=== PATIENT | female | born 1950 | race African-American/Black ===

== ENCOUNTER 2021-12-11 21:43 | Inpatient (IN) | payer OTHER ==
[~2021-12-11] VITALS: Ht 160 cm; Wt 62.6 kg
--- NOTE | 2021-12-11 22:57 | NUR ---
URINE SENT TO LAB
[2021-12-11] MEDS ORDERED: FAMOTIDINE/PF INJ 20 MG/2 ML VIAL IV ONE ×2 (23:00→23:09)
[2021-12-11] MEDS ORDERED: IV NS 0.9% 1,000 ML BAG IV ONE (23:00)
--- NOTE | 2021-12-11 23:07 | NUR ---
COVID SWAB SENT TO LAB
[2021-12-11 23:13] LABS: BASOPHILS % (AUTO) 0.2 % (0.0-2.0); EOSINOPHILS % (AUTO) 4.1 % (0.0-6.0); HEMATOCRIT 34 % (33-45); HEMOGLOBIN 11.4 g/dL (11.5-14.8); LYMPHOCYTES % (AUTO) 19.5 % (20.0-44.0); MEAN CORPUSCULAR HGB CONC 34 g/dl (31.0-36.0); MEAN CORPUSCULAR VOLUME 100 fL (82-100); MONOCYTES # (AUTO) 0.2 K/uL (0.1-1.30); MONOCYTES % (AUTO) 3.3 % (2.0-12.0); NEUTROPHILS # (AUTO) 3.9 K/uL (1.8-8.9); NEUTROPHILS % (AUTO) 72.9 % (43.0-81.0); PLATELET COUNT (AUTO) 266 K/uL (150-450); RED BLOOD CELL COUNT(AUTO) 3.39 MIL/uL (4.0-5.2); WHITE BLOOD COUNT (AUTO) 5.3 K/uL (4.3-11.0)
[2021-12-11 23:28] LABS: CALCIUM, SERUM 8.3 mg/dL (8.5-10.1); CARBON DIOXIDE 29 mmol/L (21-32); CHLORIDE 106 mmol/L (98-107); CREATININE 2.6 mg/dL (0.6-1.3); GLUCOSE 123 mg/dL (74-106); POTASSIUM 3.5 mmol/L (3.5-5.1); SODIUM SERUM 141 mmol/L (136-145); UREA NITROGEN, BLOOD 32 mg/dL (7-18)
[2021-12-11 23:33] LABS: BILIRUBIN,URINE MODERATE (NEGATIVE); COLOR,URINE YELLOW (YELLOW); LEUKOCYTE ESTERASE ,URINE NEGATIVE (NEGATIVE); NITRITE, URINE NEGATIVE (NEGATIVE); PH,URINE 5.5 (5.0-8.0); PROTEIN,URINE 30 mg/dl (NEGATIVE); UGLUCOSE NEGATIVE (NEGATIVE)
--- NOTE | 2021-12-11 23:34 | NUR ---
PATIENT TAKEN TO CT
[2021-12-11 23:35] LABS: ALANINE AMINOTRANSFERASE 14 U/L (12-78); ALKALINE PHOSPHATASE 79 U/L (46-116); ASPARTATE AMINOTRANSFERASE 11 U/L (15-37); BILIRUBIN,DIRECT 0.1 mg/dL (0.0-0.2); BILIRUBIN,TOTAL 0.3 mg/dL (0.2-1.0); LIPASE 51 U/L (73-393); TOTAL PROTEIN, SERUM 5.7 g/dL (6.4-8.2)
[2021-12-12 01:13] LABS: ALKALINE PHOSPHATASE 79 U/L (46-116); ASPARTATE AMINOTRANSFERASE 11 U/L (15-37); BILIRUBIN,DIRECT 0.1 mg/dL (0.0-0.2); BILIRUBIN,TOTAL 0.3 mg/dL (0.2-1.0)
[2021-12-12 01:14] LABS: ALANINE AMINOTRANSFERASE 14 U/L (12-78); LIPASE 51 U/L (73-393); TOTAL PROTEIN, SERUM 5.7 g/dL (6.4-8.2)
[2021-12-12 01:33] LABS: BACTERIA,URINE Many /HPF (None Seen); RBC,URINE 0-2 /HPF (0-2)
[2021-12-12 01:37] LABS: SQUAMOUS EPITHELIAL CELL,UR Moderate /HPF (None Seen)
[2021-12-12 01:40] LABS: HYALINE CASTS, URINE Few /LPF (None Seen)
[2021-12-12] MEDS ORDERED: ACETAMINOPHEN 325 MG TABLET ONE (02:44)
[2021-12-12] MEDS ORDERED: ACETAMINOPHEN 325 MG TABLET PO ONE (03:00)
[2021-12-12 03:20] LABS: BILIRUBIN,URINE MODERATE (NEGATIVE); COLOR,URINE YELLOW (YELLOW); LEUKOCYTE ESTERASE ,URINE NEGATIVE (NEGATIVE); NITRITE, URINE NEGATIVE (NEGATIVE); PH,URINE 5.5 (5.0-8.0); PROTEIN,URINE 30 mg/dl (NEGATIVE); UGLUCOSE NEGATIVE (NEGATIVE); UROBILINOGEN,URINE 0.2 EU/dL (0.2)
--- NOTE | 2021-12-12 03:25 | NUR ---
PAGED [facility] FOR ADMISSION, AWAITING A CALL BACK.
[2021-12-12] MEDS ORDERED: HEPARIN SODIUM, PORCINE 5000 UNITS/1 ML VIAL SQ SCH ×2 (04:00→09:20)
[2021-12-12] MEDS ORDERED: MAGNESIUM HYDROXIDE 30 ML UDC PO PRN (04:00)
[2021-12-12] MEDS ORDERED: LABETALOL 20 MG/4 ML VIAL IV PRN (04:00)
[2021-12-12] MEDS ORDERED: ONDANSETRON HCL/PF 4 MG/2 ML VIAL IVP PRN (04:00)
[2021-12-12] MEDS ORDERED: MAG HYDROX/AL HYDROX/SIMETH 30 ML UDC PO PRN (04:00)
[2021-12-12] MEDS ORDERED: IV NS 0.9% 1,000 ML IV ONE (04:00)
[2021-12-12] MEDS ORDERED: CEFTRIAXONE 1 G in IV D5W 50 ML IV SCH ×2 (04:00→06:44)
[2021-12-12 04:21] LABS: RBC,URINE 0-2 /HPF (0-2)
[2021-12-12 04:22] LABS: BACTERIA,URINE Moderate /HPF (None Seen); SQUAMOUS EPITHELIAL CELL,UR Moderate /HPF (None Seen)
--- NOTE | 2021-12-12 06:30 | NUR ---
PATIENT RESTING IN BED, CONNECTED TO MONITORS, NO ACUTE DISTRESS NOTED. PATIENT VSS, 3L NC TOLERATING WELL. ALISSA 20G INTACT FLUSHING WELL.
[2021-12-12] MEDS: IV NS 0.9% 1,000 ML IV SCH ×2 (06:55→17:21)
[2021-12-12] MEDS ORDERED: HEPARIN SODIUM, PORCINE 5000 UNITS/1 ML VIAL ONE (06:58)
[2021-12-12] MEDS: CEFTRIAXONE 1 G in IV D5W 50 ML IV SCH (06:59)
[2021-12-12] MEDS: METRONIDAZOLE 500MG/ NS 100ML 500 MG in PREMIX 1 EA IV SCH ×3 (07:28→21:34)
[2021-12-12] MEDS ORDERED: FAMO40TA7 PO (07:43)
[2021-12-12] MEDS ORDERED: CLOP75TA15 PO (07:43)
[2021-12-12] MEDS ORDERED: ATEN25TA PO (07:43)
[2021-12-12] MEDS ORDERED: AMLO-213 PO (07:43)
[2021-12-12] MEDS ORDERED: LISI20TA30 PO (07:43)
[2021-12-12] MEDS ORDERED: SENN-261 PO (07:43)
[2021-12-12] MEDS ORDERED: GABA600T12 PO (07:43)
[2021-12-12] MEDS ORDERED: ACET-868 PO (07:43)
[2021-12-12] MEDS ORDERED: OXYC-128 PO (07:43)
--- NOTE | 2021-12-12 08:01 | NUR ---
PT TO GO TO 328-2
--- NOTE | 2021-12-12 08:02 | NUR ---
CALLED FOR REPORT, ROOM NOT READY
--- NOTE | 2021-12-12 08:27 | NUR ---
report given to 3 michael rn
--- NOTE | 2021-12-12 08:46 | NUR ---
PATIENT WAS TRANSFERRED TO ROOM 328 IN STABLE CONDITION
--- NOTE | 2021-12-12 09:00 | NUR ---
MS [facility] OPENING NOTES PATIENT RECEIVED ON UNIT IN STABLE CONDITION, AILYN 20G SL CLEAN, INTACT AND FLUSHING WELL. PATIENT ON 2.5 LPM O2 VIA NASAL CANNULA WITH BREATHING EVEN AND UNLABORED AND NO S/S OF RESPIRATORY DISTRESS AT THIS TIME. NO COMPLAINTS OF PAIN AT THIS TIME. ADMISSION INTERVENTIONS AND CARE PLANS IMPLEMENTED. PATIENT ORIENTED TO UNIT. SAFETY MEASURES IN PLACE: BED IN LOWEST LOCKED POSITION, SIDE RAILS IN PLACE, CALL LIGHT WITHIN REACH. WILL CONTINUE TO MONITOR. Addendum: 12/12/21 at 1503 by CHAYO HIDALGO RN PATIENT WAS ADMITTED ON TELEMETRY WITH NSR 72
[2021-12-12] MEDS: ACETAMINOPHEN 325 MG TABLET PO PRN (09:45)
--- NOTE | 2021-12-12 09:50 | NUR ---
MS [facility] NOTES PATIENT COMPLAINT OF /10 ABDOMINAL PAIN AND REQUESTING MEDICATION. PRN 625 MG ACETAMINOPHEN PO ADMINISTERED ORDERED. WILL CONTINUE TO MONITOR FOR S/S OF PAIN . Addendum: 12/12/21 at 1504 by CHAYO HIDALGO RN PATIENT IS A TELEMETRY PATIENT
[2021-12-12 10:00] VITALS: BP 132/65
[2021-12-12] MEDS: MORPHINE SULFATE INJ 2 MG/ML DISP.SYRIN IV PRN ×2 (13:24→21:51)
--- NOTE | 2021-12-12 13:30 | NUR ---
MS [facility] NOTES PATIENT COMPLAINT OF 07/04 ABDOMINAL PAIN AND REQUESTING MEDICATION. PRN 1 MG MORPHINE IVP ADMINISTERED ORDERED. WILL CONTINUE TO MONITOR FOR S/S OF PAIN. Addendum: 12/12/21 at 1504 by CHAYO HIDALGO RN TELEMETRY PATIENT
[2021-12-12] MEDS ORDERED: ACETAMINOPHEN 325 MG TABLET PO PRN (15:30)
[2021-12-12] MEDS ORDERED: CEFT1FRO2 IV (15:45)
[2021-12-12] MEDS ORDERED: FAMO20TA80 PO (15:45)
[2021-12-12 15:53] VITALS: BP 118/66
[2021-12-12] MEDS: GABAPENTIN 300 MG CAPSULE PO SCH (17:18)
[2021-12-12] MEDS: oxyCODONE/APAP (5/325 MG) 1 UDTAB TABLET PO PRN (17:19)
[2021-12-12] MEDS: PANTOPRAZOLE 40 MG VIAL IV SCH (17:19)
[2021-12-12] MEDS: ATENOLOL 25 MG TABLET PO SCH (17:21)
--- NOTE | 2021-12-12 18:30 | NUR ---
[facility] CLOSING NOTES PATIENT IN BED, A/O X 4 TOLERATING WELL ON 3 LPM VIA NASAL CANNULA WITH NO S/S OF RESPIRATORY DISTRESS AT THIS TIME. ON EXTERNAL MONITOR WITH NSR 81. AILYN 20G SL CLEAN, INTACT AND FLUSHING WELL. NO COMPLAINTS OF PAIN AT THIS TIME. SAFETY MEASURES IN PLACE: BED IN LOWEST LOCKED POSITION, SIDE RAILS IN PLACE, CALL LIGHT WITHIN REACH. WILL ENDORSE TO POT FEEDER FOR SHYAM.
--- NOTE | 2021-12-12 19:30 | NUR ---
RN OPENING NOTE PATIENT IN BED, AWAKE. PATIENT IS A/O X 4 ABLE TO MAKE NEEDS KNOWN. PATIENT CURRENTLY HAS 3LPM ON TOLERATING WELL AT 96%. WILL TITRATE PRN. TELE MONITOR READS SR 79 BPM. PATIENT NOT IN ANY APPARENT DISTRESS. DOES NOT COMPLAIN OF PAIN. AILYN 20 G PATENT AND INTACT WITH ONGOING NS @75 ML/HR. PATIENT PENDING TRANSFER TO [place] TOMORROW. SAFETY MEASURES IN PLACE: BED LOCKED AND IN LOWEST POSITION, CALL LIGHT WITHIN REACH, SIDE RAILS UP. WILL MONITOR PATIENT CLOSELY.
[2021-12-12 20:39] VITALS: BP 120/58
[2021-12-12] MEDS: HEPARIN SODIUM, PORCINE 5000 UNITS/1 ML VIAL SQ SCH (21:00)
[2021-12-12] MEDS ORDERED: SENNOSIDES 8.6 MG TABLET PO SCH (22:00)
--- NOTE | 2021-12-12 22:21 | NUR ---
RN NOTE MORPHINE GIVEN FOR PAIN ON ABD. WILL REASSESS AT A LATER TIME
[2021-12-13 00:22] VITALS: BP 121/48
[2021-12-13] MEDS: ACETAMINOPHEN 325 MG TABLET PO PRN (00:42)
--- NOTE | 2021-12-13 00:42 | NUR ---
TYLENOL GIVEN FOR TEMP 100.4 WILL REASSESS AT A LATER TIME. PATIENT REFUSING COLD PACKS
[2021-12-13] MEDS: MORPHINE SULFATE INJ 2 MG/ML DISP.SYRIN IV PRN ×4 (03:32→16:23)
--- NOTE | 2021-12-13 03:54 | NUR ---
RN NOTE MORPHINE GIVEN FOR PAIN ON ABD. WILL REASSESS AT A LATER TIME
[2021-12-13 04:07] VITALS: BP 122/60
[2021-12-13] MEDS: METRONIDAZOLE 500MG/ NS 100ML 500 MG in PREMIX 1 EA IV SCH ×2 (05:01→12:14)
[2021-12-13] MEDS: CEFTRIAXONE 1 G in IV D5W 50 ML IV SCH (06:01)
--- NOTE | 2021-12-13 06:52 | NUR ---
RN CLOSING NOTE PATIENT IN BED, AWAKE. PATIENT IS A/O X 4 ABLE TO MAKE NEEDS KNOWN. PATIENT CURRENTLY HAS 3LPM ON TOLERATING WELL AT 96%. PATIENT TAKES NC OFF AT TIMES, NEEDS REINFORCEMENT. TELE MONITOR READS SR 87 BPM. PATIENT NOT IN ANY APPARENT DISTRESS. PAIN MANAGED WITH MORPHINE. AILYN 20 G PATENT AND INTACT WITH ONGOING NS @75 ML/HR. ALL NEEDS MET AND ATTENDED. ALL ORDERS CARRIED OUT. SAFETY MEASURES IN PLACE: BED LOCKED AND IN LOWEST POSITION, CALL LIGHT WITHIN REACH, SIDE RAILS UP. WILL ENDORSE TO DAY SHIFT NURSE FOR SHYAM
[2021-12-13 07:07] LABS: ALANINE AMINOTRANSFERASE 9 U/L (12-78); ALBUMIN 2.7 g/dL (3.4-5.0); ALKALINE PHOSPHATASE 75 U/L (46-116); ASPARTATE AMINOTRANSFERASE 12 U/L (15-37); BILIRUBIN,TOTAL 0.2 mg/dL (0.2-1.0); CALCIUM, SERUM 8.1 mg/dL (8.5-10.1); CARBON DIOXIDE 23 mmol/L (21-32); CHLORIDE 112 mmol/L (98-107); CREATININE 1.8 mg/dL (0.6-1.3); GLUCOSE 106 mg/dL (74-106); MAGNESIUM 2.3 mg/dL (1.8-2.4); PHOSPHORUS 4.1 mg/dL (2.5-4.9); POTASSIUM 3.9 mmol/L (3.5-5.1); SODIUM SERUM 144 mmol/L (136-145); TOTAL PROTEIN, SERUM 5.4 g/dL (6.4-8.2); UREA NITROGEN, BLOOD 27 mg/dL (7-18)
--- NOTE | 2021-12-13 07:47 | NUR ---
RN OPENING NOTE- PATIENT IN BED, A/O X 4 , ABLE TO MAKE NEEDS KNOWN. PATIENT CURRENTLY HAS O2 3LPM TOLERATING WELL AT 98%. WILL TITRATE PRN. TELE MONITOR READS SR 80 BPM. PATIENT NOT IN ANY APPARENT DISTRESS. DOES NOT COMPLAIN OF PAIN. AILYN 20 G PATENT AND INTACT WITH ONGOING NS @75 ML/HR.. SAFETY MEASURES IN PLACE: BED LOCKED AND IN LOWEST POSITION, CALL LIGHT WITHIN REACH, SIDE RAILS UP. WILL MONITOR / ASSIST. AWAITING TRANSFER
[2021-12-13 08:00] VITALS: BP 121/60
[2021-12-13] MEDS ORDERED: FAMOTIDINE 40 MG TABLET PO SCH (09:00)
[2021-12-13] MEDS ORDERED: CLOPIDOGREL BISULFATE 75 MG TABLET PO SCH (09:00)
[2021-12-13] MEDS ORDERED: LISINOPRIL (20MG) 20 MG TABLET PO SCH (09:00)
[2021-12-13] MEDS ORDERED: AMLODIPINE BESYLATE 10 MG TABLET PO SCH (09:00)
[2021-12-13] MEDS ORDERED: FAMOTIDINE (20 MG) 20 MG TABLET PO SCH (09:00)
[2021-12-13] MEDS: PANTOPRAZOLE 40 MG VIAL IV SCH ×2 (09:05→16:22)
[2021-12-13] MEDS: ATENOLOL 25 MG TABLET PO SCH ×2 (09:06→16:23)
[2021-12-13] MEDS: GABAPENTIN 300 MG CAPSULE PO SCH ×3 (09:07→16:23)
[2021-12-13 09:14] LABS: BASOPHILS % (AUTO) 0.2 % (0.0-2.0); EOSINOPHILS % (AUTO) 7.2 % (0.0-6.0); HEMATOCRIT 33 % (33-45); HEMOGLOBIN 11.1 g/dL (11.5-14.8); LYMPHOCYTES # (AUTO) 0.9 K/uL (0.8-4.8); LYMPHOCYTES % (AUTO) 23.8 % (20.0-44.0); MEAN CORPUSCULAR HGB CONC 33 g/dl (31.0-36.0); MEAN CORPUSCULAR VOLUME 101 fL (82-100); MONOCYTES # (AUTO) 0.1 K/uL (0.1-1.30); MONOCYTES % (AUTO) 3.8 % (2.0-12.0); NEUTROPHILS # (AUTO) 2.4 K/uL (1.8-8.9); PLATELET COUNT (AUTO) 270 K/uL (150-450); WHITE BLOOD COUNT (AUTO) 3.7 K/uL (4.3-11.0)
[2021-12-13] MEDS: HEPARIN SODIUM, PORCINE 5000 UNITS/1 ML VIAL SQ SCH (09:17)
[2021-12-13 12:00] VITALS: BP 108/51
[2021-12-13] MEDS: oxyCODONE/APAP (5/325 MG) 1 UDTAB TABLET PO PRN (13:53)
[2021-12-13 16:00] VITALS: BP 105/56
--- NOTE | 2021-12-13 19:51 | NUR ---
received in bed alert and orientated x4 aware she is to go to [facility] chart signed paper placed in the chart ambulated to the bathroom with one nurse assist steady on her legs back to bed alarm on report to cook called by Bg the Day shift nurse to [facility] at [facility]
[2021-12-13 20:00] VITALS: BP 121/72
--- NOTE | 2021-12-13 20:34 | NUR ---
Ambulance drivers here to take here [facility] Patient alert and orientated X4 belonging with the patient
== END 2021-12-13 20:40 | disposition short-term general hospital (02) | DRG 391 ==
LOC: ER 21:52 → TRANSITION 12-12 06:21 → TELE 12-12 08:22
PROVIDERS: ADMIT Nurse Practitioner Acute Care; ATTEND Nurse Practitioner Acute Care
DX: K21.00 Gastro-esophageal reflux disease with esophagitis, without bleeding (principal); N17.0 Acute kidney failure with tubular necrosis; E44.1 Mild protein-calorie malnutrition; N30.90 Cystitis, unspecified without hematuria; E88.09 Other disorders of plasma-protein metabolism, not elsewhere classified; K86.9 Disease of pancreas, unspecified; F17.210 Nicotine dependence, cigarettes, uncomplicated; G89.4 Chronic pain syndrome; I25.10 Atherosclerotic heart disease of native coronary artery without angina pectoris; Z95.5 Presence of coronary angioplasty implant and graft; Z68.24 Body mass index [BMI] 24.0-24.9, adult; H54.62 Unqualified visual loss, left eye, normal vision right eye; Z71.6 Tobacco abuse counseling; I10 Essential (primary) hypertension; N28.1 Cyst of kidney, acquired; Z79.891 Long term (current) use of opiate analgesic; Z20.822 Contact with and (suspected) exposure to COVID-19
CPT/HCPCS: 36415; 71045-TC; 71250-TC; 80048-TC; 80053-TC; 80076-TC; 81001; 83605-TC; 83690-TC; 83735-TC; 84100-TC; 84484-TC; 85025-TC; 85378-TC; 87040-TC; 87086-TC; 93307-TC; A4216; C9113; C9803; G0378; J0696; J1644; J2270; J3490; J7030; J7060